=== PATIENT | female | born 1955 | race African-American/Black ===

== ENCOUNTER 2017-10-24 20:15 | Observation (INO) | payer OTHER ==
[~2017-10-24] VITALS: Ht 167.6 cm; Wt 95.3 kg
[2017-10-24 20:19] VITALS: BP 192/90; PULSE 72; RESP 18; TEMP 98.3; O2SAT 99
[2017-10-24] MEDS ORDERED: SODIUM CHLORIDE 0.9% FLUSH 10 ML FLUSH IVF PRN (20:45)
--- NOTE | 2017-10-24 20:45 | PD ---
HPI Chief Complaint: Respiratory Symptoms Time Seen by Provider: 20:38 Travel History International Travel<30 days: No Contact w/Intl Traveler<30days: No Traveled to known affect area: No History of Present Illness HPI 62-year-old female presents to the emergency department by private transportation the care of her spouse for evaluation of shortness of breath and chest heaviness. Patient reports that one month ago she was diagnosed with an upper respiratory infection had cough productive of yellow-green sputum and was seen by her primary care provider Dr. Bernabe who prescribed her amoxicillin. Patient states she did not complete the course of antibiotic. Patient states since the diagnosis of upper respiratory infection she has had intermittent shortness of breath and chest heaviness primarily when climbing stairs or when exerting herself. Patient states due to this persistent symptom complaints she fine decided to call her primary care provider's office late on Thursday to share this information and she was encouraged to come to the nearest urgent care or emergency department to have a chest x-ray and need to follow-up in the office from there. Patient states when she has her discomfort it is 8/ 10 in intensity. Patient currently denies any discomfort and reports her discomfort as 0/10 in intensity. Patient states she has a history of hypertension and is prescribed HCTZ but has been noncompliant with her medication of the past few days because recently her brother in [place] from a myocardial infarction. Mother was 69 years of age and she does not know when he started having heart disease but did have a stent placed within the past 10 years. Patient reports that her brother was a very heavy tobacco smoker. Patient states she used to smoke cigarettes and stopped on her own 15 years ago and has not smoked cigarettes or tobacco for the past 15 years. Patient denies any recent long distance travel other than traveling back and forth over the past few days to [place] but states her symptoms have been present over the past 3 weeks. Patient denies any recent retracted illness or surgical procedure. Remote surgery includes hysterectomy and left knee surgery. Patient denies any known history of clotting disorder. Patient takes no hormone supplementation. Patient denies personal history of dyslipidemia or diabetes. Patient had no associated nausea vomiting sweats or referred neck jaw back shoulder arm or abdominal pain. Patient denies any lower extremity pain or swelling. Patient does not report any orthopnea or PND. Patient states the only thing that seems to trigger her episodes of shortness of breath and then subsequent chest heaviness is climbing stairs. After she climbs the stairs symptoms are present for approximately 10 minutes and then resolve spontaneously. Patient reports that she has had a stress test in the past was normal as far she recalls and cannot remember when it was performed. [facility] Past Medical History Narrative Medical Hypertension, anxiety; hysterectomy left knee surgery; previous tobacco use none now; family history CAD brother age 69 of [place]; nursing notes reviewed Social History Tobacco Use: No Allergies-Medications (Allergen,Severity, Reaction): Coded Allergies: No Known Allergies (Unverified , 10/24/17) Reported Meds & Prescriptions Reported Meds & Active Scripts Active Reported Hydrochlorothiazide 25 Mg Tab 25 Mg PO DAILY Narrative Medication HCTZ, occasional Xanax Review of Systems Except as stated in HPI: all other systems reviewed are Neg General / Constitutional: No: Fever, Chills HENT: No: Congestion Cardiovascular: Positive: Chest Pain or Discomfort (occasionally; none now), Dyspnea on exertion (climbing stairs), No: Palpitations, Irregular Rhythm, Tachycardia, Diaphoresis, Syncope Respiratory: Positive: Shortness of Breath (with exertionof stair climbing), No : Cough Gastrointestinal: No: Nausea, Vomiting, Diarrhea, Abdominal Pain Genitourinary: No: Dysuria, Flank Pain Musculoskeletal: No: Myalgias, Arthralgias, Limited ROM, Edema, Pain Skin: No Rash Neurologic: No: Weakness, Dizziness, Syncope Psychiatric: No: Anxiety Hematologic/Lymphatic: No: Lymph Node Enlargement Physical Exam Narrative GENERAL: Well-developed well-nourished female no acute distress no respiratory distress; GCS 15; BP: 192/92 elevated SKIN: Warm and dry. HEAD: Normocephalic. EYES: No scleral icterus. No injection or drainage. NECK: Supple, trachea midline. No JVD or lymphadenopathy. CARDIOVASCULAR: Regular rate and rhythm without murmurs, gallops, or rubs. Bilateral radial and dorsalis pedis pulses 2+ to palpation. RESPIRATORY: Breath sounds equal bilaterally. No accessory muscle use. GASTROINTESTINAL: Abdomen soft, non-tender, nondistended. MUSCULOSKELETAL: No cyanosis, or edema. No lower extremity tenderness to palpation no erythema negative Homans negative posterior calf cording no pallor or coolness of the extremity dorsalis pedis pulse and posterior tibialis pulses 2+ to palpation bilaterally BACK: Nontender without obvious deformity. No CVA tenderness. Data Data Last Documented VS Vital Signs Date Time Temp Pulse Resp B/P (MAP) Pulse Ox O2 Delivery O2 Flow Rate FiO2 10/24/17 23:48 56 18 151/84 (106) 99 Room Air 10/24/17 20:19 98.3 Orders Orders Iv Access Insert/Monitor (10/24/17 20:38) Electrocardiogram (10/24/17 20:38) Ecg Monitoring (10/24/17 20:38) Oximetry (10/24/17 20:38) Chest, Pa & Lat (10/24/17 20:38) Sodium Chloride 0.9% Flush (Ns Flush) (10/24/17 20:45) Complete Blood Count With Diff (10/24/17 23:06) Basic Metabolic Panel (Bmp) (10/24/17 23:06) Magnesium (Mg) (10/24/17 23:06) Act Partial Throm Time (Ptt) (10/24/17 23:06) Prothrombin Time / Inr (Pt) (10/24/17 23:06) Ckmb (Isoenzyme) Profile (10/24/17 23:06) Troponin I (10/24/17 23:06) CKMB (10/24/17 23:30) CKMB% (10/24/17 23:30) Admit Order (Ed Use Only) (10/25/17 ) Manager Instrumentation / Telemetry ASIF.Q8H (10/25/17 01:13) Activity Oob With Assistance (10/25/17 01:13) Notify Dr: Other (10/25/17 01:13) Activity Bed Rest With Brp (10/25/17 01:13) Vital Signs (Adult) Q4H (10/25/17 01:13) Cardiac Rhythm .As Directed (10/25/17 01:13) Notify Dr: Other .PRN (10/25/17 01:13) Notify Parameters (10/25/17 01:13) Resp Oxygen Nasal Cannula (10/25/17 ) Ckmb (Isoenzyme) Profile (10/25/17 02:30) Ckmb (Isoenzyme) Profile (10/25/17 05:30) Troponin I (10/25/17 02:30) Troponin I (10/25/17 05:30) Electrocardiogram (10/25/17 02:30) Electrocardiogram (10/25/17 05:30) ^ Obtain (10/25/17 01:13) Sodium Chloride 0.9% Flush (Ns Flush) (10/25/17 01:15) Sodium Chloride 0.9% Flush (Ns Flush) (10/25/17 09:00) Nitroglycerin Sl (Nitrostat Sl) (10/25/17 01:15) Aspirin (Aspirin) (10/25/17 09:00) Alprazolam (Xanax) (10/25/17 01:15) Manager Instrumentation / Telemetry ASIF.Q8H (10/25/17 01:13) Labs Laboratory Tests Test 10/24/17 23:30 White Blood Count 5.5 TH/MM3 Red Blood Count 4.55 MIL/MM3 Hemoglobin 13.6 GM/DL Hematocrit 40.6 % Mean Corpuscular Volume 89.2 FL Mean Corpuscular Hemoglobin 30.0 PG Mean Corpuscular Hemoglobin Concent 33.6 % Red Cell Distribution Width 13.6 % Platelet Count 259 TH/MM3 Mean Platelet Volume 8.3 FL Neutrophils (%) (Auto) 42.8 % Lymphocytes (%) (Auto) 46.7 % Monocytes (%) (Auto) 6.6 % Eosinophils (%) (Auto) 3.3 % Basophils (%) (Auto) 0.6 % Neutrophils # (Auto) 2.4 TH/MM3 Lymphocytes # (Auto) 2.5 TH/MM3 Monocytes # (Auto) 0.4 TH/MM3 Eosinophils # (Auto) 0.2 TH/MM3 Basophils # (Auto) 0.0 TH/MM3 CBC Comment DIFF FINAL Differential Comment Prothrombin Time 10.4 SEC Prothromb Time International Ratio 1.0 RATIO Activated Partial Thromboplast Time 28.0 SEC Blood Urea Nitrogen 19 MG/DL Creatinine 0.72 MG/DL Random Glucose 88 MG/DL Calcium Level 8.3 MG/DL Magnesium Level 2.0 MG/DL Sodium Level 138 MEQ/L Potassium Level 3.7 MEQ/L Chloride Level 106 MEQ/L Carbon Dioxide Level 25.7 MEQ/L Anion Gap 6 MEQ/L Estimat Glomerular Filtration Rate 99 ML/MIN Total Creatine Kinase 187 U/L Creatine Kinase MB 1.8 NG/ML Troponin I LESS THAN 0.02 NG/ML MDM Medical Decision Making Medical Screen Exam Complete: Yes Emergency Medical Condition: Yes Medical Record Reviewed: Yes Interpretation(s) EKG: Sinus bradycardia rate [address] elevation or injury pattern age- indeterminate QS septally CXR: INDINGS: PA and lateral views of the chest demonstrate the lungs to be symmetrically aerated without evidence of mass, infiltrate or effusion. The cardiomediastinal contours are unremarkable. Osseous structures are intact. CONCLUSION: 1. No acute cardiopulmonary findings identified. Tapan Tuttle MD on October 24, 2017 at 21:46 Board Certified Radiologist. This report was verified electronically. CBC & BMP Diagram 10/24/17 23:30 Calcium Level 8.3 L, Magnesium Level 2.0 Troponin I: Less than 0.02, not elevated Differential Diagnosis Dyspnea, bronchitis, pneumonia, ACS, GA, CHF, PE Narrative Course Patient placed on manager monitoring EKG chest x-ray ordered with lab work ordered. Patient states she rather not have any lab work ordered but is deciding whether or not to agree to having IV access and specimens collected. In the interim will order EKG and chest x-ray. EKG sinus rhythm mild sinus bradycardia heart rate 59 patient with age- indeterminate septal infarct changes with QS noted V1 V2 no acute ST elevation or injury pattern change noted. Patient refuses IV access or serum specimen collection CXR: wnl Cardiac risk: Female age 62, hypertension, family history CAD brother age 69; prior tobacco use; EKG shows age-indeterminate septal infarct QS V1 V2; patient refusing lab work; have discussed in detail benefit and risk of observation for chest pain center protocol as well as lab work and recommend observation admission due to her risk factor profile. Patient is aware a chest x-ray is unremarkable. At 1 AM cardiac enzymes have resulted and are found to be in normal range; plan will be to admit to chest pain center Physician Communication Physician Communication call placed to [facility] Diagnosis Primary Impression: Dyspnea Qualified Codes: R06.09 - Other forms of dyspnea Admitting Information Admitting Physician Requests: Observation Mary Buchanan MD Oct 24, 2017 20:45
[2017-10-24] MEDS ORDERED: HYDR25TA5 PO (20:51)
[2017-10-24 20:53] VITALS: RESP 18; O2SAT 99
--- NOTE | 2017-10-24 21:49 | RADRPT ---
EXAM DATE/TIME: 10/24/2017 20:51 [facility] COMPARISON: No previous studies available for comparison. INDICATIONS : Upper respiratory infection- Shortness of breath. MEDICAL HISTORY : None. SURGICAL HISTORY : None. ENCOUNTER: Initial ACUITY: 3 weeks PAIN SCORE: 3/10 LOCATION: Bilateral chest FINDINGS: PA and lateral views of the chest demonstrate the lungs to be symmetrically aerated without evidence of mass, infiltrate or effusion. The cardiomediastinal contours are unremarkable. Osseous structure s are intact. CONCLUSION: 1. No acute cardiopulmonary findings identified. Tapan Tuttle MD on October 24, 2017 at 21:46 Board Certified Radiologist. This report was verified electronically.
[2017-10-24 22:15] VITALS: BP 149/84; PULSE 58; RESP 18; O2SAT 99
[2017-10-24 23:45] LABS: AUTOMATED NEUTROPHIL # 2.4 TH/MM3 (1.8-7.7); BASOPHIL % 0.6 % (0.0-2.0); EOSINOPHIL # 0.2 TH/MM3 (0-0.4); EOSINOPHIL % 3.3 % (0.0-4.0); HEMATOCRIT 40.6 % (35.0-46.0); HEMOGLOBIN 13.6 GM/DL (11.6-15.3); LYMPH % 46.7 % (9.0-44.0); LYMPHOCYTE # 2.5 TH/MM3 (1.0-4.8); MEAN CELL VOLUME 89.2 FL (80.0-100.0); MEAN CORPUSCULAR HGB CONC 33.6 % (32.0-36.0); MEAN PLATELET VOLUME 8.3 FL (7.0-11.0); MONO % 6.6 % (0.0-8.0); MONOCYTE # 0.4 TH/MM3 (0-0.9); NEUT % 42.8 % (16.0-70.0); PLATELET COUNT 259 TH/MM3 (150-450); RED BLOOD COUNT 4.55 MIL/MM3 (4.00-5.30); RED CELL DISTRIBUTION WIDTH 13.6 % (11.6-17.2); WHITE BLOOD COUNT 5.5 TH/MM3 (4.0-11.0)
[2017-10-24 23:48] VITALS: BP 151/84; PULSE 56; RESP 18; O2SAT 99
[2017-10-24 23:50] LABS: CHLORIDE 106 MEQ/L (98-107); SODIUM (NA) 138 MEQ/L (136-145)
[2017-10-24 23:53] LABS: CALCIUM 8.3 MG/DL (8.5-10.1)
[2017-10-24 23:54] LABS: BICARBONATE 25.7 MEQ/L (21.0-32.0); BLOOD UREA NITROGEN 19 MG/DL (7-18); GLUCOSE,RANDOM 88 MG/DL (74-106)
[2017-10-24 23:56] LABS: PROTHROMBIN TIME - PATIENT 10.4 SEC (9.8-11.6)
[2017-10-24 23:57] LABS: CREATININE 0.72 MG/DL (0.50-1.00); GLOMERULAR FILTRATION RATE 99 ML/MIN (>89)
[2017-10-25] VITALS (8 sets, daily range): BP systolic 135–193; BP diastolic 67–89; PULSE 54–60; RESP 16–18; TEMP 97.4–97.5; O2SAT 94–99
[2017-10-25 00:02] LABS: TROPONIN I LESS THAN 0.02 NG/ML (0.02-0.05)
[2017-10-25] MEDS ORDERED: NITROGLYCERIN 0.4 MG SL 25 TABS/BTL SL PRN (01:15)
[2017-10-25] MEDS ORDERED: ALPRAZolam 0.25 MG TAB PO PRN (01:15)
[2017-10-25] MEDS ORDERED: SODIUM CHLORIDE 0.9% FLUSH 10 ML FLUSH IV FLUSH PRN (01:15)
[2017-10-25] MEDS ORDERED: REGADENOSON INJ 0.4 MG/5 ML SYR IV ONE (01:17)
[2017-10-25] MEDS ORDERED: hydrALAZINE HCL 20 MG/ML VIAL IV PUSH PRN (03:00)
[2017-10-25 03:27] LABS: TROPONIN I LESS THAN 0.02 NG/ML (0.02-0.05)
[2017-10-25 07:27] LABS: TROPONIN I LESS THAN 0.02 NG/ML (0.02-0.05)
--- NOTE | 2017-10-25 08:57 | HHI.HP ---
[facility] Service [facility] Primary Care Physician Te Bernabe MD Admission Diagnosis chest pain Diagnoses: (1) Chest pain Diagnosis: Principal (2) Accelerated hypertension Diagnosis: Principal Chief Complaint: Chest heaviness Travel History International Travel<30 Days: No Contact w/Intl Traveler <30 Da: No Traveled to Known Affected Are: No History of Present Illness 62-year-old female with known history of hypertension, medication noncompliance who presented to the hospital because of intermittent chest heaviness. Patient states that in the beginning of September she was treated for upper respiratory infection by Dr. Beckman with amoxicillin. Patient did not complete the full round of antibiotics and ever since then she has been experiencing a chest heaviness sensation in the middle part of her chest 6/10 on a pain scale the last approximate 10 minutes at a time which is worse with exertion. Patient states that she usually has to stop exerting himself and the pain resolved on its own. She did speak with her primary medical doctor who indicated that she may need to have a chest x-ray performed to rule out any pneumonia if she still having discomfort. The patient denied any nausea, vomiting, lightheadedness, dizziness, shortness of breath, dyspnea. Upon presentation patient was found to have accelerated hypertension. She is supposed to be on lisinopril and HCTZ , however she quit taking lisinopril because she did not like the way it made her feel. She has not taken HCTZ in a few days. She only takes medications when she thinks she needs to. On presentation her blood pressure was 192/90. Patient was seen by the ER physician who recommended the patient be observed in the hospital for chest pain evaluation. Upon evaluating patient this morning she is asymptomatic. She does have increased risk factors to include age, history of tobacco use, hypertension, family history of heart disease Review of Systems Cardiovascular: COMPLAINS OF: Chest pain Except as stated in HPI: all other systems reviewed are Neg Past Family Social History Past Medical History Hypertension Past Surgical History Hysterectomy Left knee surgery Reported Medications Reported Meds & Active Scripts Active Reported Hydrochlorothiazide 25 Mg Tab 25 Mg PO DAILY Allergies: Coded Allergies: No Known Allergies (Unverified , 10/24/17) Family History Reviewed and significant for brother at age 68 from myocardial infarction and heart disease. Social History Patient quit smoking 15 years ago, prior to that she smoked half a pack of cigarettes a day since she was a teenager. She does drink wine proxy 3 times weekly. Denies any illicit drug Physical Exam Vital Signs Vital Signs Date Time Temp Pulse Resp B/P (MAP) Pulse Ox O2 Delivery O2 Flow Rate FiO2 10/25/17 08:35 97 21 10/25/17 03:10 57 16 135/67 (89) 97 10/25/17 02:26 97.5 56 16 193/89 (123) 97 10/25/17 02:08 60 18 99 10/25/17 01:45 60 18 156/86 (109) 99 Room Air 10/25/17 01:20 99 21 10/24/17 23:48 56 18 151/84 (106) 99 Room Air 10/24/17 22:15 58 18 149/84 (105) 99 Room Air 10/24/17 20:53 62 18 99 Room Air 10/24/17 20:53 18 99 Room Air 10/24/17 20:19 98.3 72 18 192/90 (124) 99 Physical Exam GENERAL: Well-developed, well-nourished, in no acute distress. alert and orientated HEENT: Head is normocephalic without any lesions or masses noted. Facial features are symmetric. Eyes: Pupils equal round reactive to light. Extraocular muscles are intact. Conjunctivae were clear. Oropharyngeal: Pharynx without any erythema edema. Tongue is midline without deviation. Buccal mucosa is moist without any masses or lesions NECK: Supple without any masses. Trachea midline no deviation. No JVD, no bruits are appreciated CARDIAC: Regular rhythm, regular rate. S1/S2 are heard. No murmurs gallops or rubs. LUNGS: Clear to auscultation bilaterally. No wheeze, rhonchi or rales. No use of accessory muscles on inspiration or expiration. ABDOMEN: Soft, nontender. Nondistended. Bowel sounds heard in all 4 quadrants. No organomegaly or masses. Negative rebound, negative guarding EXTREMITIES: No edema, pulses are equal bilaterally. No cyanosis or clubbing NEUROLOGY: Mood and affect appear appropriate. Cranial nerves II through XII grossly intact. Muscle strength 5/5 in upper and lower extremities bilaterally. Deep tendon reflexes are 2+ in upper and lower extremities bilaterally. Laboratory Laboratory Tests Test 10/24/17 23:30 10/25/17 02:50 10/25/17 05:50 White Blood Count 5.5 Red Blood Count 4.55 Hemoglobin 13.6 Hematocrit 40.6 Mean Corpuscular Volume 89.2 Mean Corpuscular Hemoglobin 30.0 Mean Corpuscular Hemoglobin Concent 33.6 Red Cell Distribution Width 13.6 Platelet Count 259 Mean Platelet Volume 8.3 Neutrophils (%) (Auto) 42.8 Lymphocytes (%) (Auto) 46.7 Monocytes (%) (Auto) 6.6 Eosinophils (%) (Auto) 3.3 Basophils (%) (Auto) 0.6 Neutrophils # (Auto) 2.4 Lymphocytes # (Auto) 2.5 Monocytes # (Auto) 0.4 Eosinophils # (Auto) 0.2 Basophils # (Auto) 0.0 CBC Comment DIFF FINAL Differential Comment Prothrombin Time 10.4 Prothromb Time International Ratio 1.0 Activated Partial Thromboplast Time 28.0 Blood Urea Nitrogen 19 Creatinine 0.72 Random Glucose 88 Calcium Level 8.3 Magnesium Level 2.0 Sodium Level 138 Potassium Level 3.7 Chloride Level 106 Carbon Dioxide Level 25.7 Anion Gap 6 Estimat Glomerular Filtration Rate 99 Total Creatine Kinase 187 162 158 Creatine Kinase MB 1.8 1.6 1.8 Troponin I LESS THAN 0.02 LESS THAN 0.02 LESS THAN 0.02 Result Diagram: 10/24/17232910/24/172329 Imaging Last Impressions Chest X-Ray 10/24/172037 Signed Impressions: Service Date/Time: Tuesday, October 24, 2017 20:51 - CONCLUSION: 1. No acute cardiopulmonary findings identified. Tapan Tuttle MD Caprini VTE Risk Assessment Caprini VTE Risk Assessment: Mod/High Risk (score >= 2) Caprini Risk Assessment Model Point Value = 1 Point Value = 2 Point Value = 3 Point Value = 5 Age 41-60 Minor surgery BMI > 25 kg/m2 Swollen legs Varicose veins or History of unexplained or recurrent spontaneous Oral contraceptives or hormone replacement Sepsis (< 1 month) Serious lung disease, including pneumonia (< 1 month) Abnormal pulmonary function Acute myocardial infarction Congestive heart failure (< 1 month) History of inflammatory bowel disease Medical patient at bed rest Age 61-74 Arthroscopic surgery Major open surgery (> 45 min) Laparoscopic surgery (> 45 min) Malignancy Confined to bed (> 72 hours) Immobilizing plaster cast Central venous access Age >= 75 History of VTE Family history of VTE Factor V Leiden Prothrombin [id number] Lupus anticoagulant Anticardiolipin antibodies Elevated serum homocysteine Heparin-induced thrombocytopenia Other congenital or acquired thrombophilia Stroke (< 1 month) Elective arthroplasty Hip, pelvis, or leg fracture Acute spinal cord injury (< 1 month) Prophylaxis Regimen Total Risk Factor Score Risk Level Prophylaxis Regimen 0-1 Low Early ambulation 2 Moderate Order ONE of the following: *Sequential Compression Device (SCD) *Heparin 5000 units SQ BID 3-4 Higher Order ONE of the following medications: *Heparin 5000 units SQ TID *Enoxaparin/Lovenox 40 mg SQ daily (WT < 150 kg, CrCl > 30 mL/min) *Enoxaparin/Lovenox 30 mg SQ daily (WT < 150 kg, CrCl > 10-29 mL/min) *Enoxaparin/Lovenox 30 mg SQ BID (WT < 150 kg, CrCl > 30 mL/min) AND/OR *Sequential Compression Device (SCD) 5 or more Highest Order ONE of the following medications: *Heparin 5000 units SQ TID (Preferred with Epidurals) *Enoxaparin/Lovenox 40 mg SQ daily (WT < 150 kg, CrCl > 30 mL/min) *Enoxaparin/Lovenox 30 mg SQ daily (WT < 150 kg, CrCl > 10-29 mL/min) *Enoxaparin/Lovenox 30 mg SQ BID (WT < 150 kg, CrCl > 30 mL/min) AND *Sequential Compression Device (SCD) Assessment and Plan Assessment and Plan Chest pain Patient with increased risk factors include age, hypertension, history of tobacco use, family history heart disease Patient discomfort could be secondary to medication noncompliance, uncontrolled hypertension, pleuritic from recent upper respiratory infection Patient has been ruled out for acute coronary event with serial cardiac enzymes are negative Serial EKGs were reviewed by myself and indicates sinus bradycardia without any changes. Myocardial perfusion study was performed and indicated no ischemia, low risk Continue aspirin, nitroglycerin as needed Accelerated hypertension, due to medication noncompliance Resume HCTZ Apresoline as needed DVT prevention Sequential compression devices Discharge disposition Discharge home in stable condition Activity: Ad jailyn. Diet: Healthy heart diet Medication per medication reconciliation Follow-up with primary medical doctor in 1 week Lio Saldana Oct 25, 2017 08:56
[2017-10-25] MEDS ORDERED: SODIUM CHLORIDE 0.9% FLUSH 10 ML FLUSH IV FLUSH SCH (09:00)
[2017-10-25] MEDS ORDERED: ASPIRIN 325 MG TAB PO SCH (09:00)
[2017-10-25] MEDS ORDERED: HYDROCHLOROTHIAZIDE 25 MG TAB PO SCH (09:00)
--- NOTE | 2017-10-25 13:27 | EKG ---
Date Performed: 10/24/2017 Time Performed: 20:50:58 PTAGE: 62 years EKG: SINUS BRADYCARDIA LOW QRS VOLTAGE IN PRECORDIAL LEADS Poor initial anterior forces, which m ay be normal variant Compared to previous tracing, R-force slightly smaller in V2, otherwise no signf icant change. ABNORMAL ECG PREVIOUS TRACING : 12/22/2001 23.36 DOCTOR: Froy Cifuentes Interpretating Date/Time 10/25/2017 13:27:20
--- NOTE | 2017-10-25 13:29 | EKG ---
Date Performed: 10/25/2017 Time Performed: 02:25:19 PTAGE: 62 years EKG: SINUS BRADYCARDIA BORDERLINE ECG Compared to PREVIOUS TRACING , QRS is larger in the precordial leads, otherwise no significant change . PREVIOUS TRACIN10/24/2017 20.50 DOCTOR: Froy Cifuentes Interpretating Date/Time 10/25/2017 13:27:51
--- NOTE | 2017-10-25 13:30 | EKG ---
Date Performed: 10/25/2017 Time Performed: 05:26:46 PTAGE: 62 years EKG: SINUS BRADYCARDIA LOW QRS VOLTAGE IN PRECORDIAL LEADS BORDERLINE ECG Compared to PREVIOUS TRACING , precordial lead QRS voltage slightly lower, otherwise no significant c hange. PREVIOUS TRACIN10/25/2017 02.25 DOCTOR: Froy Cifuentes Interpretating Date/Time 10/25/2017 13:28:33
--- NOTE | 2017-10-25 14:00 | RADRPT ---
EXAM DATE/TIME: 10/25/2017 12:22 [facility] COMPARISON: No previous studies available for comparison. INDICATIONS : Chest pain with dyspnea. Angina. DOSE: 27.2 mCi Tc99m Myoview at stress. 8.5 mCi Tc99m Myoview at rest. 0.4 mg Lexiscan STRESS SYMPTOMS: Dyspnea, head pressure and nausea. EJECTION FRACTION: 63% MEDICAL HISTORY : Hypertension. SURGICAL HISTORY : Hysterectomy. ENCOUNTER: Initial ACUITY: 1 week PAIN SCALE: 8/10 LOCATION: chest TECHNIQUE: The patient underwent pharmacologic stress with infusion of prescribed dose. Continuous ECG tracing was monitored during stress. Gated SPECT imaging was performed after stress and conventional SPECT i maging was performed at rest. The examination was performed on a SPECT/CT scanner, both attenuation and non-corrected datasets were reviewed. FINDINGS: DISTRIBUTION: The maximum perfused segment at stress is in the septal wall. PERFUSION STUDY: The pattern of perfusion at stress is within normal limits. GATED STUDY: There is intact wall motion and thickening without hypokinetic or dyskinetic segments. CONCLUSION: Normal examination. RISK CATEGORY: low risk Shae Chavez MD on October 25, 2017 at 13:53 Board Certified Radiologist. This report was verified electronically.
--- NOTE | 2017-10-25 14:06 | HHI.DCPOC ---
Discharge Care Plan Diagnosis: (1) Chest pain (2) Accelerated hypertension Goals to Promote Your Health * To prevent worsening of your condition and complications * To maintain your health at the optimal level Directions to Meet Your Goals Take your medications as prescribed Follow your dietary instruction Follow activity as directed Keep your appointments as scheduled Take your immunizations and boosters as scheduled If your symptoms worsen call your PCP, if no PCP go to Urgent Care Center or Emergency Room Smoking is Dangerous to Your Health. Avoid second hand smoke Call the 24-hour hour crisis hotline for domestic abuse at Lio Saldana Oct 25, 2017 14:06
--- NOTE | 2017-10-26 17:17 | TR ---
Date Performed: 10/25/2017 Time Performed: 13:02:22 DOCTOR: Inderjit Obando DRUG LIST: CLINICAL HISTORY: REASON FOR TEST: REASON FOR ENDING: OBSERVATION: CONCLUSION: Lexiscan stress test was performed under standard four minute protocol. Radionuclid e was injected one minute prior to ending the test. No electrocardiographic abormalities were present to suggest ischemia. Nuclear imaging and interpretation are pending. COMMENTS:
== END 2017-10-25 14:46 | disposition home or self-care (01) ==
LOC: PHED 20:15 → PHEDA 10-25 01:16 → PH3B 10-25 02:00
PROVIDERS: ADMIT Hospitalist; ATTEND Hospitalist
DX: R07.9 Chest pain, unspecified (principal); I10 Essential (primary) hypertension; Z87.891 Personal history of nicotine dependence; R00.1 Bradycardia, unspecified; Z91.14 Patient's other noncompliance with medication regimen; R06.02 Shortness of breath; Z90.710 Acquired absence of both cervix and uterus; Z82.49 Family history of ischemic heart disease and other diseases of the circulatory system; R94.31 Abnormal electrocardiogram [ECG] [EKG]
CPT/HCPCS: 71046; 78452; 80048; 82550; 82552; 83735; 84484; 85025; 85610; 85730; 93005; 93017; 99285; A9502; G0378; J2785